=== PATIENT | female | born 1990 | race Asian ===

== ENCOUNTER 2019-05-16 15:18 | Emergency (ER) | payer OTHER, SELFPAY ==
--- NOTE | 2019-05-16 15:30 | ED.WOUNDLAC ---
HPI - Wound/Laceration <LOLI Finn - Last Filed: 05/16/19 16:27> General Chief Complaint: Extremity Injury, Upper Stated Complaint: CUT LEFT HAND Time Seen by Provider: 05/16/19 15:19 Source: patient Mode of arrival: ambulatory Limitations: no limitations History of Present Illness HPI narrative: 28-year-old healthy female presents emergency department today complaining of a laceration to the skin in between her 4th and 5th finger of her left hand by a knife she was using the to cut vegetables. Bleeding was controlled with pressure, patient is uncertain of her last tetanus. Denies numbness, tingling, decreased range of motion, syncope, nausea, abdominal pain, chest pain, shortness of breath. Onset (ago): minute(s) Place: home Patient tetanus UTD: No Associated symptoms: none Treatments prior to arrival: bandage Related Data Home Medications Medication Instructions Recorded Confirmed loratadine [Claritin] 10 mg PO PRN PRN #0 05/18/17 04/10/19 Previous Rx's Medication Instructions Recorded triamcinolone acetonide 0.1 % 1 applictn TOP BID 14 Days #30 gram 04/10/19 topical ointment Allergies Allergy/AdvReac Type Severity Reaction Status Date / Time nitrofurantoin AdvReac Intermediate HEADACHES, Verified 04/10/19 13:59 [From MACROBID] NAUSEA AND VOMITING Review of Systems <LOLI Finn - Last Filed: 05/16/19 16:27> Review of Systems REVIEW OF SYSTEMS: GENERAL: Denies fever or chills. CARDIOVASCULAR: No chest pain or syncope. RESPIRATORY: No shortness of breath or cough. GASTROINTESTINAL: No nausea, vomiting, diarrhea, or constipation. MUSCULOSKELETAL: No pain, weakness, or deformities. INTEGUMENTARY: Complains of laceration, see HPI. NEURO: No numbness or tingling. PFSH <LOLI Finn - Last Filed: 05/16/19 16:27> Medical History (Updated 05/16/19 @ 16:20 by LOLI Finn) No significant medical problems (Chronic) Social History Smoking Status: Never smoker Social History Smoking Status: Never smoker Exam <LOLI Finn - Last Filed: 05/16/19 16:27> Initial Vital Signs Initial Vital Signs: Vital Signs Temperature 97.6 F 05/16/19 15:32 Pulse Rate 101 H 05/16/19 15:32 Respiratory Rate 16 05/16/19 15:32 Blood Pressure 125/79 05/16/19 15:32 Pulse Oximetry 97 05/16/19 15:32 PHYSICAL EXAMINATION: GENERAL: Well groomed, alert, and cooperative Answers questions promptly and appropriately. Vital signs noted. HENT: Normocephalic, atraumatic. . EYES: Sclera white, no periorbital swelling. MUSCULOSKELETAL: Normal gait and coordination. Equal tone and mass bilaterally. EXTREMITIES: 3 cm laceration to left medial proximal aspect 5th finger, bleeding controlled by pressure. No erythema or, blanching or, discharge from the wound. Light touch sensation intact to all fingers and entire left hand, full range of motion against resistance is intact to 5th and 4th left finger. Radial pulses intact bilaterally. 5/5 channel business manager strength bilaterally. SKIN: Warm, dry, soft, appropriate color for ethnicity. NEURO: Alert and Oriented X 3. Good coordination. No ataxia, or sensory deficits, or cognitive issues. PSYCH: Appropriate affect and mood. <Buddy Arauz DO - Last Filed: 05/16/19 18:06> Initial Vital Signs Initial Vital Signs: Vital Signs Temperature 97.6 F 05/16/19 15:32 Pulse Rate 101 H 05/16/19 15:32 Respiratory Rate 16 05/16/19 15:32 Blood Pressure 125/79 05/16/19 15:32 Pulse Oximetry 97 05/16/19 15:32 Procedures <LOLI Finn - Last Filed: 05/16/19 16:27> Laceration Repair left 5th finger lac: Site: hand Side (If applicable): left Size (cm): 3 Description: linear Depth: simple, single layer Local Anesthetic: lidocaine 1% and with bicarb Amount of anesthesia used (mL): 3 Pre-repair: wound explored and irrigated extensively Skin layer closed with: nylon Size (cm): 4-0 Number of sutures: 2 Technique: simple, interrupted Course <LOLI Finn - Last Filed: 05/16/19 16:27> Orders Ordered: Discontinued Medications Diphtheria/Tetanus/Acell Pertussis (Adacel) 0.5 ml IM .ONCE ONE Stop: 05/16/19 15:36 Last Admin: 05/16/19 16:32 Dose: 0.5 ml Consultations Consultation #1: Patient staffed with Dr. Arauz. Vital Signs - 8 hr 05/16/19 15:32 05/16/19 16:45 Temperature 97.6 F Pulse Rate 101 H 81 Respiratory Rate 16 12 Blood Pressure 125/79 Blood Pressure [Right Arm] 118/70 Pulse Oximetry 97 99 <Buddy Arauz DO - Last Filed: 05/16/19 18:06> Orders Ordered: Discontinued Medications Diphtheria/Tetanus/Acell Pertussis (Adacel) 0.5 ml IM .ONCE ONE Stop: 05/16/19 15:36 Last Admin: 05/16/19 16:32 Dose: 0.5 ml Vital Signs - 8 hr 05/16/19 15:32 05/16/19 16:45 Temperature 97.6 F Pulse Rate 101 H 81 Respiratory Rate 16 12 Blood Pressure 125/79 Blood Pressure [Right Arm] 118/70 Pulse Oximetry 97 99 MDM - Wound/Laceration <LOLI Finn - Last Filed: 05/16/19 16:27> Medical Records Attestation: I reviewed the patient's medical records. Lab Data Attestation: I reviewed the patient's lab results. MDM Narrative Medical decision making narrative: Simple laceration was repaired with sutures due to depth of wound in location. A little concern for tendon involvement as patient has complete range of motion and strength in hand. Little low suspicion is wound occurred few minutes ago there is no erythema, fevers, or wound discharge. Discharge Plan Departure Patient Disposition: Home Clinical Impression: Laceration Discharge Date/Time: 05/16/19 16:53 Interventions: ED Discharge Assessment Last Done: 05/16/19 16:51 Instructions: DI for Laceration Repair -- Finger Activity Restrictions/Additional Instructions: Thank you for entrusting me with your care today. As discussed, have placed 2 sutures in the laceration. These can be removed in 7-10 days, you can follow up with her primary care provider, the urgent care or here. Please keep the dressing in place for 24 hours, after that you may cleanse the wound gently and had Neosporin and a bandage. Do not soak your hand in any water. Please see doctor if you develop signs of infection such as increasing redness, pus, fever, or chills. Prescriptions: No Action triamcinolone acetonide 0.1 % ointment 1 applictn TOP BID 14 Days Qty: 30 RF: 3 loratadine [Claritin] 10 MG tablet 10 mg PO PRN PRNQty: 0 RF: 0 Referrals: Shae Diez PA-C [Primary Care Provider] - <Buddy Arauz DO - Last Filed: 05/16/19 18:06> Cosign ED Attending Tyree Attestation: I was immediately available in the department for consultation. Documentation has been reviewed. I agree with assessment and plan.
[2019-05-16 15:32] VITALS: BP 125/79; PULSE 101; RESP 16; TEMP 36.4; O2SAT 97; BMI 19.8
[2019-05-16] MEDS: TET,DIPH,PERTUSS(ACELL),VAC/PF 0.5 ML SYRINGE IM (16:32)
[2019-05-16 16:45] VITALS: BP 118/70; PULSE 81; RESP 12; O2SAT 99
--- NOTE | 2019-05-16 16:50 | PC.NURSE ---
Laceration sutures placed by provider. Bacitracin and bandaid applied with gauze between 4th and 5th digits. Digits noreen taped per provider, CMS intact. Pt verbalizes understanding of use of noreen taping at home.
== END 2019-05-16 16:53 | disposition home or self-care (01) ==
PROVIDERS: Emergency Provider Nurse Practitioner; Family Provider Physician Assistant; PCP Physician Assistant
DX: S61.412A Laceration without foreign body of left hand, initial encounter (principal); W26.0XXA Contact with knife, initial encounter; Z23 Encounter for immunization
CPT/HCPCS: 12002; 90471; 99282; 99283; 90715

== ENCOUNTER → 2020-12-05 10:35 | Outpatient (CLI) | payer OTHER, SELFPAY ==
[2020-12-05 11:48] LABS: Add Manual Diff / Slide Review NO; Basophils Absolute Auto 0 /uL (0-100); Basophils Percent Auto 0.3 % (0-2); Eosinophils Absolute Auto 300 /uL (0-450); Eosinophils Percent Auto 2.6 % (2-4); Hematocrit 40.1 % (36-46); Hemoglobin 13.3 g/dL (12.0-16.0); Lymphocytes Absolute Auto 1700 /uL (1100-4500); Lymphocytes Percent Auto 17.4 % (25-40); Mean Corpuscular HGB Conc 33.2 % (30-36); Mean Corpuscular Hemoglobin 28.2 PG (26-34); Mean Corpuscular Volume 84.9 fL (80-100); Monocytes Absolute Auto 700 /uL (0-900); Monocytes Percent Auto 7.3 % (3-14); Neutrophils Absolute Auto 7100 /uL (1500-7000); Neutrophils Percent Auto 72.4 % (50-75); Platelet Count 177 X10^3/uL (150-400); Red Blood Cell Count 4.72 X10^6/uL (4.0-5.2); Red Cell Distribution Width 14.8 % (11.6-14.8); White Blood Cell Count 9.8 X10^3/uL (4.5-11.0)
[2020-12-05 11:53] LABS: Appearance Urine UA CLEAR; Bilirubin Urine UA NEGATIVE (NEGATIVE); Color Urine UA YELLOW; Glucose Urine UA 1+ g/dL (Negative); Ketones Urine UA TRACE (NEGATIVE); Leukocyte Esterase Urine UA NEGATIVE (NEGATIVE); Nitrite Urine UA NEGATIVE (Negative); Occult Blood Urine UA TRACE-LYSED (Negative); Protein Urine UA NEGATIVE (Negative); Specific Gravity Urine UA >=1.030 (1.000-1.035); Urobilinogen Urine UA 0.2 E.U./dL (0.2)
[2020-12-05 11:55] LABS: pH Urine UA 5.5 (4.5-8.0)
[2020-12-05 13:10] LABS: HIV 1 & 2 Ab/Ag 4th Gen Combo NEGATIVE (NEGATIVE); Hep C Virus Ab w/Reflex Quant NEGATIVE s/c (NEGATIVE); Hepatitis B Surface Antigen NEGATIVE s/c (NEGATIVE); Rubella Antibody IgG > 350.0 IU/mL (>15)
[2020-12-06 07:24] LABS: RPR Screen Non Reactive (Non Reactive)
[2020-12-06 07:41] LABS: Varicella IgG Antibody <135 index (Immune >165)
== END ==
PROVIDERS: Family Provider Physician Assistant; PCP Family Medicine; Referring Provider Family Medicine; Visit Provider Family Medicine
DX: Z34.01 Encounter for supervision of normal first pregnancy, first trimester (principal)
CPT/HCPCS: 36415; 80055; 81003; 86787; 86803; 86850; 86900; 86901; 87086; 87389

== ENCOUNTER → 2021-02-05 12:06 | Outpatient (CLI) | payer OTHER, SELFPAY ==
--- NOTE | 2021-02-05 12:07 | DI.US.S_ITS ---
PROCEDURE: US OB >= 14 WEEKS FETUS INDICATIONS: anatomy screening OUTSIDE/PRIOR DATING DATA: Last menstrual period (LMP): 09/19/2020. LMP-based estimated date of delivery (DOMINGO): 06/26/2021 . First dating scan (date and location): 02/05/2021 . Estimated date of delivery (DOMINGO) from first dating scan: 06/26/2021 . TECHNIQUE: Real-time scanning was performed of the fetus, with image documentation and biometric measurements. Endovaginal scanning: No COMPARISON: None. FINDINGS: General: A single living intrauterine gestation is present. Presentation: Breech. Placenta: Placental position is posterior , without previa. Amniotic fluid index: 11.1 cm, normal range is 5-24 cm. heart rate: 149 beats per minute. Maternal cervical canal: 4.2 cm long. Normal lower limit is 2.5 cm. biometrics: Biparietal diameter: 19 weeks 3 days Head circumference: 19 weeks 4 days Abdominal circumference: 19 weeks 5 days Femur length: 20 weeks 3 days Estimated gestational age from initial scan: N/a Composite gestational age from present scan: 19 weeks 6 days Estimated weight and percentile: 323 g; 51st percentile Measurement variability for biometric dating: +/- 7 days from 14 weeks to 15 weeks 6 days gestation, +/- 10 days from 16 weeks to 21 weeks 6 days gestation, +/- 2 weeks from 22 weeks to 27 weeks 6 days gestation, +/- 3 weeks for 28 weeks gestation or later. weight reference: 4500 g or EFW >90/95% is considered macrosomia or large for gestational age. EFW <10% is small for gestational age. EFW 5% or less is considered intra-uterine growth restriction. Anatomic survey: Neuro: Ventricles are non-dilated at less than 10 mm. Cisterna magna is normal at 3-11 mm. Cerebellum is normal in size and morphology. Nuchal skin fold: Normal at less than 6 mm between 14-21 weeks gestational age. Face: Nose and lips, facial profile are normal. Spine: No evidence for spina bifida. Heart: 4-chambered heart is present, and cardiac outflow tract suboptimally visualized.. Diaphragm: Diaphragm is intact. Stomach: Left-sided stomach is present. Kidneys: No hydronephrosis. Normal is less than 5 mm in 2nd trimester, less than 7 mm in 3rd trimester. Cord: 3-vessel cord has orthotopic insertion. Bladder: Normal in size. Extremities: All 4 extremities identified. IMPRESSION: 1. 19 week 6 day single living IUP corresponding to ultrasound DOMINGO of 06/26/2021. 2. Cardiac outflow tracts not well visualized; otherwise normal anatomic survey. Dictated by: Trey GRIFFIN Interpreted: Mayuri Mckeon MD on 02/05/2021 at 16:04 Approved by: Mayuri Mckeon M.D. on 02/05/2021 at 17:30
== END ==
PROVIDERS: Family Provider Physician Assistant; PCP Family Medicine; Referring Provider Family Medicine; Visit Provider Family Medicine
DX: Z34.92 Encounter for supervision of normal pregnancy, unspecified, second trimester (principal); Z3A.19 19 weeks gestation of pregnancy
CPT/HCPCS: 76811

== ENCOUNTER → 2021-02-19 13:10 | Outpatient (CLI) | payer OTHER, SELFPAY ==
--- NOTE | 2021-02-19 13:11 | DI.US.S_ITS ---
PROCEDURE: US OB LIMITED INDICATIONS: OUTFLOW TRACTS FOLLOW UP OUTSIDE/PRIOR DATING DATA: Last menstrual period (LMP): September 19, 2020. LMP-based estimated date of delivery (DOMINGO): June 26, 2021. First dating scan (date and location): February 05, 2021. Estimated date of delivery (DOMINGO) from first dating scan: June 26, 2021. TECHNIQUE: Real-time scanning was performed of the fetus, with image documentation. Endovaginal scanning: Performed COMPARISON: [facility], OB >= 14 WEEKS FETUS, 02/05/2021, 13:42. FINDINGS: A single living intrauterine gestation is present. Presentation: Transverse. Placenta: Placental position is posterior, without previa. Amniotic fluid index: 14.4 cm, normal range is 5-24 cm. heart rate: 157 beats per minute. Maternal cervical canal: Closed and 3.8 cm long. Normal lower limit is 2.5 cm. Estimated gestational age from initial scan: 21 weeks 6 days. Right ventricular outflow tract and left ventricular outflow tract normal in appearance. IMPRESSION: 1. Single living intrauterine . 2. Normal amniotic fluid index. 3. Right and left ventricular outflow tracts normal in appearance. Dictated by: Lalitha Colon MD, PhD on 02/20/2021 at 9:36 Approved by: Lalitha Colon MD, PhD on 02/20/2021 at 9:41
== END ==
PROVIDERS: Family Provider Physician Assistant; PCP Family Medicine; Referring Provider Family Medicine; Visit Provider Family Medicine
DX: Z36.2 Encounter for other antenatal screening follow-up (principal); Z3A.21 21 weeks gestation of pregnancy
CPT/HCPCS: 76815

== ENCOUNTER → 2021-03-16 13:20 | Outpatient (CLI) | payer OTHER, SELFPAY ==
[2021-03-16 14:43] LABS: Add Manual Diff / Slide Review NO; Basophils Absolute Auto 0 /uL (0-100); Basophils Percent Auto 0.2 % (0-2); Eosinophils Absolute Auto 100 /uL (0-450); Eosinophils Percent Auto 1.5 % (2-4); Hematocrit 36.6 % (36-46); Hemoglobin 12.2 g/dL (12.0-16.0); Lymphocytes Absolute Auto 1300 /uL (1100-4500); Mean Corpuscular HGB Conc 33.3 % (30-36); Mean Corpuscular Hemoglobin 29.3 PG (26-34); Mean Corpuscular Volume 87.8 fL (80-100); Monocytes Absolute Auto 600 /uL (0-900); Monocytes Percent Auto 6.2 % (3-14); Neutrophils Absolute Auto 7600 /uL (1500-7000); Neutrophils Percent Auto 78.1 % (50-75); Platelet Count 144 X10^3/uL (150-400); Red Blood Cell Count 4.17 X10^6/uL (4.0-5.2); Red Cell Distribution Width 14.1 % (11.6-14.8); White Blood Cell Count 9.7 X10^3/uL (4.5-11.0)
[2021-03-16 14:57] LABS: GTT (PREG) 1 Hour PP 50gm Dose 149 mg/dL (76-139)
== END ==
PROVIDERS: Family Provider Physician Assistant; PCP Family Medicine; Referring Provider Family Medicine; Visit Provider Family Medicine
DX: Z34.90 Encounter for supervision of normal pregnancy, unspecified, unspecified trimester (principal); Z3A.24 24 weeks gestation of pregnancy
CPT/HCPCS: 36415; 82950; 85025

== ENCOUNTER → 2021-03-17 12:40 | Outpatient (CLI) | payer OTHER, SELFPAY ==
[2021-03-17 14:55] LABS: Glucose Fasting Gestational 80 mg/dL (76-95)
[2021-03-17 15:35] LABS: Glucose 1 Hour Gest 168 mg/dL (76-180)
[2021-03-17 17:33] LABS: Glucose 2 Hour Gest 137 mg/dL (76-155)
[2021-03-17 17:55] LABS: Glucose Tol Interp,Gestational INTERPRETATION
[2021-03-17 18:01] LABS: Glucose 3 Hour Gest 125 mg/dL (76-140)
== END ==
PROVIDERS: Family Provider Physician Assistant; PCP Family Medicine; Referring Provider Family Medicine; Visit Provider Family Medicine
DX: R73.09 Other abnormal glucose (principal); Z34.90 Encounter for supervision of normal pregnancy, unspecified, unspecified trimester
CPT/HCPCS: 36415; 82951; 82952

== ENCOUNTER → 2021-04-09 12:58 | Outpatient (CLI) | payer OTHER, SELFPAY ==
[2021-04-09] MEDS: COVID-19 VACC #1, MRNA(MOD) 100 MCG/0.5 ML VIAL IM (13:04)
== END ==
PROVIDERS: Family Provider Physician Assistant; PCP Family Medicine; Visit Provider Internal Medicine
DX: Z23 Encounter for immunization (principal)
CPT/HCPCS: 0011A; 91301

== ENCOUNTER → 2021-05-08 12:50 | Outpatient (CLI) | payer OTHER, SELFPAY ==
[2021-05-08] MEDS: COVID-19 VACC #2, MRNA(MOD) 100 MCG/0.5 ML VIAL IM (12:56)
== END ==
PROVIDERS: Family Provider Physician Assistant; PCP Family Medicine; Visit Provider Internal Medicine
DX: Z23 Encounter for immunization (principal)
CPT/HCPCS: 0012A; 91301

== ENCOUNTER → 2021-05-12 12:20 | Outpatient (CLI) | payer OTHER, SELFPAY ==
--- NOTE | 2021-05-12 12:20 | DI.US.S_ITS ---
PROCEDURE: US OB LIMITED INDICATIONS: size and dates OUTSIDE/PRIOR DATING DATA: Last menstrual period (LMP): 09/19/20. LMP-based estimated date of delivery (DOMINGO): 06/26/21 . First dating scan (date and location): 02/05/21 . Estimated date of delivery (DOMINGO) from first dating scan: 06/26/21 . TECHNIQUE: Real-time scanning was performed of the fetus, with image documentation. Endovaginal scanning: Not needed COMPARISON: [facility], OB LIMITED, 02/19/2021, 13:38. FINDINGS: A single living intrauterine gestation is present. Presentation: Cephalic. Placenta: Placental position is posterior , without previa. Amniotic fluid index: 10.8 cm, normal range is 5-24 cm. heart rate: 137 beats per minute. Maternal cervical canal: Not seen due to vertex presentation. Estimated gestational age from initial scan: 33 weeks 4 days. The current estimated gestational age is 33 weeks 1 day based on biometry of BPD 8.3 cm, 33 weeks 3 days, head circumference of 30.4 cm, 33 weeks 6 days; abdominal circumference of 28.4 cm, 32 weeks 3 days; femur length of 6.3 cm, 32 weeks 4 days. IMPRESSION: Appropriate interval growth, no anomaly noted. The delivery date is projected to be centered on 06/26/21. Dictated by: Trae Avina M.D. on 05/12/2021 at 16:26 Approved by: Trae Avina M.D. on 05/12/2021 at 16:29
== END ==
PROVIDERS: Family Provider Physician Assistant; PCP Family Medicine; Referring Provider Family Medicine; Visit Provider Family Medicine
DX: Z36.87 Encounter for antenatal screening for uncertain dates (principal); Z3A.33 33 weeks gestation of pregnancy
CPT/HCPCS: 76815

== ENCOUNTER → 2021-05-25 11:05 | Outpatient (CLI) | payer OTHER, SELFPAY ==
[2021-05-26 15:28] LABS: Strep Grp B PCR NEG for Grp B Strep
== END ==
PROVIDERS: Family Provider Physician Assistant; PCP Family Medicine; Referring Provider Family Medicine; Visit Provider Family Medicine
DX: Z34.90 Encounter for supervision of normal pregnancy, unspecified, unspecified trimester (principal); Z3A.35 35 weeks gestation of pregnancy
CPT/HCPCS: 87653

== ENCOUNTER 2021-07-03 12:50 | Outpatient (CLI) | payer OTHER, SELFPAY ==
--- NOTE | 2021-07-04 11:10 | P.TNLD_ITS ---
Visit Information Visit Information Date of evaluation: 07/03/21 Primary OB Provider: Arielle Tomlinson Reason for Evaluation: Yes non-stress test non-stress test reason: other (post- date) Comments/Additional reasons for admission: 30yo at 41w0d here for post- dates NST. No vaginal bleeding, LOF, contractions. Feeling baby move regularly. [facility] Medical History (Updated 07/04/21 @ 22:21 by Arielle Tomlinson MD) Allergic rhinitis Eczema No significant medical problems UTI (urinary tract infection) (~2017) Surgical History (Updated 12/04/20 @ 14:27 by Vaishali Awad, RN) No pertinent past surgical history Family History (Updated 12/04/20 @ 13:38 by Vaishali Awad, RN) Mother No problems noted. Father No problems noted. Grandmother No problems noted. Grandfather No problems noted. Grandmother Diabetes mellitus Grandfather No problems noted. Sister No problems noted. Social History marital status: household members: significant other lives independently: Yes pets and animals: No education level: college ([employer] : Ass Degree Engineering) occupational status: unemployed current occupational exposures/hazards: No evan/temple: Hindu special evan needs: No Smoking Status: Never smoker second hand exposure: No alcohol intake: never substance use type: does not use Evaluation Evaluation Baseline heart rate: 140 Variability: Moderate (11-25) monitor accelerations: Present Monitor Decelerations: Absent Category of Tracing: Reactive Diagnosis, Plan/Disposition Final Diagnosis (1) 41 weeks gestation of : Status: Acute Plan/Disposition Plan: 30yo at 41w0d here for post-dates NST. Reactive NST. Scheduled for IOL at 41w2d. OB Disposition: home
== END 2021-07-03 13:48 | disposition home or self-care (01) ==
LOC: LABOR 12:57 → OB 07-06 09:48
PROVIDERS: Family Provider Physician Assistant; PCP Family Medicine; Referring Provider Family Medicine; Visit Provider Family Medicine
DX: O48.0 Post-term pregnancy (principal); Z3A.41 41 weeks gestation of pregnancy
CPT/HCPCS: 59025; G0378; G0379

== ENCOUNTER 2021-07-05 13:57 | Inpatient (IN) | payer OTHER, SELFPAY ==
--- NOTE | 2021-07-05 15:25 | P.HPOB_ITS ---
OB HPI Date/Time Date of admission: 07/05/21 Date Patient Seen: 07/05/21 Time Patient Seen: 20:30 History of Present Condition Chief complaint: Eval of Labor : 1 Para: 0 Estimated Date of Delivery: 06/26/21 Estimated Gestational Age (weeks): 41w2d Narrative: Melania Singleton is a 30 year old at 41w2d who presented with PROM, and after 2 hours began having regular painful contractions. Pt reports feeling a gush of fluid around 1:30pm. She denies any vaginal bleeding. She is feeling baby move regularly. History of Present care: good care, initiated at week # (11) and pounds weight gain (41) Dating criteria: LMP confirmed by 1st trimester US Ultrasounds: normal 1st trimester US and normal mid trimester US Obstetrical complications: none Medical complications: none Preadmission Labs Blood type: B (+) positive -: Antibody screen: negative, GBS status: negative, HBsAG: negative, HIV: negative and RPR/VDLR: negative -: Rubella: immune and Varicella: not immune HCT: 36.6 HCAB: negative Urine: Christa 1 hr GTT: 149 3 hr GTT: 1 hr (168), 2 hr (137) and 3 hr (125) Fasting blood glucose: 80 Evaluation Evaluation Baseline heart rate: 130 Variability: Moderate (11-25) monitor accelerations: Present Monitor Decelerations: Absent Contraction Frequency (minutes): 3 Status: Category l Cervical dilation (cm): 3 Cervical effacement (%): 90 station: -1 [facility] Medical History (Updated 07/04/21 @ 22:21 by Arielle Tomlinson MD) Allergic rhinitis Eczema No significant medical problems UTI (urinary tract infection) (~2017) Surgical History (Updated 12/04/20 @ 14:27 by Vaishali Awad RN) No pertinent past surgical history Family History (Updated 12/04/20 @ 13:38 by Vaishali Awad RN) Mother No problems noted. Father No problems noted. Grandmother No problems noted. Grandfather No problems noted. Grandmother Diabetes mellitus Grandfather No problems noted. Sister No problems noted. Social History marital status: household members: significant other lives independently: Yes pets and animals: No education level: college ([employer] : Ass Degree Engineering) occupational status: unemployed current occupational exposures/hazards: No evan/restorationism: [employer] special evan needs: No Smoking Status: Never smoker second hand exposure: No alcohol intake: never substance use type: does not use Meds Home Medications and Allergies Home Medications Medication Instructions Recorded Confirmed Type loratadine 10 mg tablet (Claritin) 10 mg PO PRN PRN #0 MDD 10mg 05/18/17 07/05/21 History prenat.vits,srinivas,[id number] 1 tab PO DAILY 12/04/20 07/05/21 History triamcinolone acetonide 0.025 % 1 applic TOPICAL BID #80 g 01/30/21 07/05/21 Rx topical ointment Allergies Allergy/AdvReac Type Severity Reaction Status Date / Time nitrofurantoin AdvReac Intermediate HEADACHES, Verified 05/05/21 10:35 [From MACROBID] NAUSEA AND VOMITING Exam Const General: cooperative, healthy appearing and comfortable Orientation: alert, awake and oriented x3 Resp Effort & Inspection: normal respiratory effort Auscultation: clear to auscultation bilaterally Cardio Rate: regular rate Rhythm: regular rhythm Heart Sounds: S1 normal, S2 normal and no murmurs GI Inspection: non-distended Palpation: soft and No tender Other: gravid Presentation: vertex Extrem General: no clubbing, cyanosis or edema Objective Labs Result Diagrams: 07/05/21 20:15 Assessment and Plan Assessment and Plan Assessment and Plan narrative: 30yo at 41w2d here with PROM, now transit ioning into active labor. No complications with . GBS negative, Rh positive. - Expectant management, anticipate - FHT reassuring, intermittent monitoring okay - GBS negative, no prophylaxis indicated - Epidural for pain control when desired - Recheck cervix in 2 hours, if unchanged initiate pitocin
[2021-07-05 16:14] LABS: COVID19 - ADMIT (NP swab/PCR) Negative (Negative)
[2021-07-05 20:59] LABS: Add Manual Diff / Slide Review NO; Basophils Absolute Auto 0 /uL (0-100); Basophils Percent Auto 0.2 % (0-2); Eosinophils Absolute Auto 0 /uL (0-450); Eosinophils Percent Auto 0.4 % (2-4); Hemoglobin 13.7 g/dL (12.0-16.0); Lymphocytes Absolute Auto 1600 /uL (1100-4500); Lymphocytes Percent Auto 12.4 % (25-40); Mean Corpuscular HGB Conc 32.7 % (30-36); Mean Corpuscular Hemoglobin 27.8 PG (26-34); Mean Corpuscular Volume 85.2 fL (80-100); Monocytes Absolute Auto 1000 /uL (0-900); Monocytes Percent Auto 7.8 % (3-14); Neutrophils Absolute Auto 10000 /uL (1500-7000); Neutrophils Percent Auto 79.2 % (50-75); Platelet Count 129 X10^3/uL (150-400); Red Blood Cell Count 4.92 X10^6/uL (4.0-5.2); Red Cell Distribution Width 15.5 % (11.6-14.8); White Blood Cell Count 12.6 X10^3/uL (4.5-11.0)
[2021-07-05] MEDS: LACTATED RINGERS 1,000 ML 100 ML IV (21:00)
[2021-07-05 23:31] VITALS: BP 138/78
[2021-07-05] MEDS: fentaNYL 100 MCG/2 ML INJ 50 MCG IV (23:59)
[2021-07-06] MEDS: LACTATED RINGERS 1,000 ML 100 ML IV (06:03)
--- NOTE | 2021-07-06 08:14 | PM.OBPNLAB ---
Date/Time Date Patient Seen: 07/06/21 Time Patient Seen: 08:00 Pain Control Pain control: epidural Pelvic Exam Dilation (cm): 10 Effacement (%): 100 station: +2 Amniotic membrane status: Ruptured Contractions Contractions on admission: regular Monitor mode: External Contraction frequency (min): 3 Contraction pattern: Regular Contraction intensity: Strong/Firm Status status: Category l Heart Rate Baseline: 150 Monitor Accelerations: Absent Monitor Decelerations: Early Monitor Variability: Moderate Assessment and Plan Comments: 30yo at 41w2d here with PROM, now in active labor and complete. No complications with . GBS negative, Rh positive. - Expectant management, anticipate - FHT reassuring - GBS negative, no prophylaxis indicated - Epidural in place for pain control - Labor down then start pushing, not feeling any pressure
[2021-07-06] MEDS: OXYTOCIN PREMIX 30 UNIT/500 ML PLAST..BAG IV (10:00)
[2021-07-06] MEDS: miSOPROStoL 200 MCG TABLET 1000 MCG PR (12:21)
--- NOTE | 2021-07-06 13:59 | PM.OBPRVD ---
Labor & Delivery Delivery date: 07/06/21 Intrapartal Events: None Cervical ripening method: none Induction method: none Delivery augmentation: pitocin Delivery monitor: external FHT Route of delivery: Episiotomy description: None L&D Laceration Description: Perineal - 2nd Degree Delivery repair: vicryl Estimated blood loss (mL): 700 Anesthesia Type: Epidural Complications: hemorrhage Narrative: PROCEDURE: at 41w2d presented with PROM and was admitted to Labor and Delivery. She transitioned into active labor without induction. The patient progressed through the 1st stage over 7 hours. Pain was controlled with an epidural. The patient progressed through the 2nd stage over 4 hours. Pitocin was initiated due to significant spacing of her contractions. She delivered a viable female with APGARs 8/9 at 11:58 via . The cord was clamped and cut after it stopped pulsating. There were several large gushes of blood after delivery of the placenta, controlled with brief bimanual massage. The perineum and vagina were inspected with 2nd degree perineal laceration repaired with 2-O Vicryl in the usual fashion. PREPROCEDURE DIAGNOSIS: Intrauterine at 41w2d GBS negative RH positive POSTPROCEDURE DIAGNOSIS: Intrauterine at 41w3d, delivered Same as preprocedure hemorrhage Baby 1: Infant gender: Female Presentation: vertex Position: Right Occiput Anterior Placenta delivery description: Spontaneous Cord Vessel Description: 3 Vessels score (1 min): 8 score (5 min): 9 weight: 8 lb 0.962 oz Plan for aftercare: Routine care
[2021-07-06] MEDS: IBUPROFEN 600 MG TABLET PO (14:43)
[2021-07-06] MEDS: DERMOPLAST SPRAY 20% 60 ML 1 SPRAY TOP (14:44)
[2021-07-06 15:45] VITALS: TEMP 37.9
[2021-07-06] MEDS: ACETAMINOPHEN 325 MG TABLET 650 MG PO (15:45)
[2021-07-06] MEDS: GENTAMICIN 290 MG in SODIUM CHLORIDE 0.9% 100 ML 107.25 ML IV (18:18)
[2021-07-06] MEDS: AMPICILLIN 2,000 MG in SODIUM CHLORIDE 0.9% 100 ML 200 ML IV (19:58)
[2021-07-07] MEDS: AMPICILLIN 2,000 MG in SODIUM CHLORIDE 0.9% 100 ML 200 ML IV ×2 (04:26→10:30)
[2021-07-07] MEDS: ACETAMINOPHEN 325 MG TABLET 650 MG PO (06:29)
[2021-07-07 06:53] LABS: Add Manual Diff / Slide Review NO; Basophils Absolute Auto 100 /uL (0-100); Basophils Percent Auto 0.5 % (0-2); Eosinophils Absolute Auto 100 /uL (0-450); Eosinophils Percent Auto 0.7 % (2-4); Hemoglobin 11.3 g/dL (12.0-16.0); Lymphocytes Absolute Auto 2400 /uL (1100-4500); Lymphocytes Percent Auto 15.9 % (25-40); Mean Corpuscular HGB Conc 33.1 % (30-36); Mean Corpuscular Hemoglobin 28.2 PG (26-34); Mean Corpuscular Volume 85.1 fL (80-100); Monocytes Absolute Auto 1000 /uL (0-900); Monocytes Percent Auto 6.4 % (3-14); Neutrophils Absolute Auto 11600 /uL (1500-7000); Neutrophils Percent Auto 76.5 % (50-75); Platelet Count 128 X10^3/uL (150-400); Red Blood Cell Count 3.99 X10^6/uL (4.0-5.2); Red Cell Distribution Width 16.1 % (11.6-14.8); White Blood Cell Count 15.2 X10^3/uL (4.5-11.0)
--- NOTE | 2021-07-07 08:21 | PM.OBDS.1 ---
Discharge Providers Provider Date of admission: 07/05/21 13:57 Discharge Date: 07/07/21 Primary care physician: Arielle Tomlinson MD Consults: 07/07/21 13:58 Consult to Rehab Therapy Manager Routine Comment: Discharge provider: Arielle Tomlinson MD Summary Hospital Course Date Patient Seen: 07/07/21 Time Patient Seen: 07:45 Diagnoses: 41w3d gestation GBS negative Rh positive Prolonged ROM fever Hospital Course: The patient presented with PROM and progressed into active labor. She received an epidural for pain control. A small dose of Pitocin was started and the 2nd stage due to spacing of contractions. She had a spontaneous vaginal delivery of a viable baby girl on 07/06/21. A second-degree perineal laceration was repaired. Immediately the patient did have a temperature to 100.5 temp orally that was not confirmed with oral temperature, however, the patient was experiencing chills and feeling quite feverish. Due to this, in the setting of prolonged rupture of membranes, the decision was made to initiate antibiotics. The patient was started on ampicillin gentamicin. She remains on the is for nearly 24 hours and was afebrile throughout that time. The patient was feeling significantly better the next day. There were no other complications . At the time of discharge she was voiding, ambulating, passing flatus without difficulty. Her lochia was decreasing appropriately. Her pain was adequately controlled. She was breast-feeding with good latch. She will follow-up in clinic since in 6 weeks for her check. Peripartum Data Infant Delivery Method: Natural Vaginal Laceration Description: Perineal - 2nd Degree Episiotomy description: None Procedures: Spontaneous vaginal delivery 1: Gender: Female Disposition of : home Discharge Diagnosis (1) Spontaneous vaginal delivery: Status: Acute Status at Discharge Cognitive/behavioral status at discharge: oriented Functional status at discharge: independent ambulation Overall status at discharge: patient is progressing back to baseline Time Spent with Patient Time attestation: Total time spent providing and/or coordinating discharge services: Objective Labs Result Diagrams: 07/07/21 06:46 Labs: Laboratory Results - last 24 hr 07/07/21 06:46 WBC 15.2 H RBC 3.99 L Hgb 11.3 L Hct 34.0 L MCV 85.1 MCH 28.2 MCHC 33.1 RDW 16.1 H Plt Count 128 L Neut % (Auto) 76.5 H Lymph % (Auto) 15.9 L [place] % (Auto) 6.4 Eos % (Auto) 0.7 L Baso % (Auto) 0.5 Neut # (Auto) 67338 H Lymph # (Auto) 2400 [place] # (Auto) 1000 H Eos # (Auto) 100 Baso # (Auto) 100 Exam Narrative Exam Narrative: Gen: NAD, sitting comfortably in bed, appears well CV: RRR, no murmurs Resp: clear to auscultation bilaterally Abd: soft, appropriately tender, fundus firm and below the umbilicus, nondistended Ext: no edema Discharge Plan Discharge Plan Patient Disposition: Home Discharge orders & Medications Prescriptions: New acetaminophen 325 mg Tablet 650 mg PO Q6HR PRN (Reason: Pain, Mild (1-3)) Qty: 30 RF: 0 docusate sodium [DOK] 100 mg Capsule 100 mg PO DAILY Qty: 30 RF: 0 ibuprofen 600 mg Tablet 600 mg PO Q6HR PRN (Reason: Pain, Mild (1-3)) Qty: 30 RF: 0 Continued triamcinolone acetonide 0.025 % ointment 1 applic topical BID Qty: 80 RF: 2 loratadine [Claritin] 10 MG tablet 10 mg PO PRN MDD 10mg PRN (Reason: Itching) Qty: 0 RF: 0 prenat.vits,srinivas,ykp-rzjf-mcemv Tablet 1 tab PO DAILY RF: 0 Follow up/Referrals: Arielle Tomlinson MD [Primary Care Provider] - 6 Weeks (appointment will be made at baby's appointment.) Diet/Activity/Treatments Diet: Diet as Tolerated and Regular Skin/Wound/Dressing Care Report to your healthcare provider any signs of infection, such as:: chills, fever, increased pain and unusual drainage Visit Report/Discharge Packet Instructions: DI for Labor and Delivery, Vaginal Stand Alone Forms: Discharge: Care Visit Report Forms: Patient Portal/API, Stroke Signs & Symptoms Discharge Data Primary Care Provider: Arielle Tomlinson Discharges patient from system. Discharge Date/Time: 07/07/21 13:50
[2021-07-07] MEDS: DOCUSATE 100 MG CAPSULE PO (10:30)
[2021-07-07] MEDS: PRENATAL VIT,CALC/IRON/FOLIC 1 TABLET 1 TAB PO (10:30)
[2021-07-07 11:00] VITALS: BP 102/63; PULSE 89; RESP 16; TEMP 36.6
== END 2021-07-07 13:50 | disposition home or self-care (01) | DRG 806 ==
PROVIDERS: Admitting Provider Family Medicine; Family Provider Physician Assistant; PCP Family Medicine; Referring Provider Family Medicine; Visit Provider Family Medicine
DX: O48.0 Post-term pregnancy (principal); O72.0 Third-stage hemorrhage; Z37.0 Single live birth; Z3A.41 41 weeks gestation of pregnancy; O70.1 Second degree perineal laceration during delivery; Z20.822 Contact with and (suspected) exposure to COVID-19
CPT/HCPCS: 01967; 36415; 59025; 59050; 59400; 84112; 85025; 86850; 86900; 86901; 87635; C9803; G0379; J0290; J2590; J3010; S0191